=== PATIENT | male | born 1970 | race Caucasian/White ===

== ENCOUNTER 2018-12-02 17:31 | Emergency (ER) | payer OTHER ==
[~2018-12-02] VITALS: Ht 167.6 cm; Wt 60.0 kg
[2018-12-02] MEDS ORDERED: NAPR250T4 PO (17:44)
[2018-12-02] MEDS ORDERED: SERT50TA12 PO (17:44)
[2018-12-02] MEDS ORDERED: KETOROLAC TROMETHAMINE 30 MG/ML VIAL IM ONE (18:15)
[2018-12-02 21:00] VITALS: BP 129/75
== END 2018-12-02 21:51 | disposition home or self-care (01) ==
LOC: EMS 17:33
DX: M25.521 Pain in right elbow (principal); R03.0 Elevated blood-pressure reading, without diagnosis of hypertension; F32.9 Major depressive disorder, single episode, unspecified; Z79.899 Other long term (current) drug therapy; Z88.5 Allergy status to narcotic agent
CPT/HCPCS: 29105; 73080; 96372; 99283; J1885